=== PATIENT | female | born 1965 | race Caucasian/White ===

== ENCOUNTER 2022-05-23 09:34 | Outpatient (CLI) | payer BC ==
[2022-05-23 14:10] LABS: BASOPHILS # (AUTO) 0.1 10^3/uL (0.0-0.1); BASOPHILS % (AUTO) 0.8 %; EOSINOPHILS # (AUTO) 0.2 10^3/uL (0.0-0.7); EOSINOPHILS % (AUTO) 2.4 %; HCT - HEMATOCRIT 42.1 % (37.0-47.0); HGB - HEMOGLOBIN 13.7 g/dL (12.0-16.0); LYMPHOCYTES # (AUTO) 2.2 10^3/uL (1.5-3.5); LYMPHOCYTES % (AUTO) 29.7 %; MEAN CORPUSCULAR HEMOGLOBIN 30.6 pg (27.0-31.0); MEAN CORPUSCULAR HGB CONC 32.5 g/dL (32.0-36.0); MEAN CORPUSCULAR VOLUME 94.2 fL (81.0-99.0); MEAN PLATELET VOLUME 9.7 fL (7.9-10.8); MONOCYTES # (AUTO) 0.7 10^3/uL (0.0-1.0); MONOCYTES % (AUTO) 9.7 %; NEUTROPHILS # (AUTO) 4.3 10^3/uL (1.5-6.6); NEUTROPHILS % (AUTO) 57.1 %; PLT - PLATELET COUNT 408 10^3/uL (130-450); RED BLOOD COUNT 4.47 10^6/uL (4.20-5.40); RED CELL DISTRIBUTION WIDTH 13.1 % (12.0-15.0); WHITE BLOOD COUNT 7.5 x10^3/uL (4.8-10.8)
[2022-05-23 14:30] LABS: ALBUMIN/GLOBULIN RATIO 1.1 (1.0-2.2); BILIRUBIN,TOTAL 0.4 mg/dL (0.2-1.0); CALCIUM 9.7 mg/dL (8.5-10.3); CREATININE 0.6 mg/dL (0.4-1.0); POTASSIUM 3.9 mmol/L (3.5-5.0); TOTAL PROTEIN 7.7 g/dL (6.7-8.2)
[2022-05-23 14:41] LABS: THYROID STIMULATING HORMONE 1.38 uIU/mL (0.34-5.60)
== END 2022-05-23 09:35 | disposition home or self-care (01) ==
LOC: LAB.S 09:34
PROVIDERS: ATTEND Registered Nurse
DX: R59.0 Localized enlarged lymph nodes (principal); R05.1 Acute cough; R06.09 Other forms of dyspnea; R53.83 Other fatigue; R53.81 Other malaise
CPT/HCPCS: 36415; 80053; 82306; 82607; 84443; 85025

== ENCOUNTER 2022-05-23 12:29 | Outpatient (CLI) | payer BC ==
--- NOTE | 2022-05-23 10:19 | XRAY Report ---
PROCEDURE: Chest 2 View X-Ray INDICATIONS: COUGH TECHNIQUE: 2 views of the chest were acquired. COMPARISON: None. FINDINGS: Surgical changes and devices: None. Lungs and pleura: No pleural effusions or pneumothorax. Lungs are clear. Mediastinum: Mediastinal contours are normal. Heart size is normal. Bones and chest wall: No suspicious bony abnormalities. Mild S-shaped thoracolumbar scoliotic curvat ure. Soft tissues appear unremarkable. IMPRESSION: No evidence acute pulmonary process. Reviewed by: Danilo Graham MD on 05/23/2022 10:18 AM [facility] Approved by: Danilo Graham MD on 05/23/2022 10:18 AM [facility] Station ID: [id number]
== END 2022-05-23 12:30 | disposition home or self-care (01) ==
LOC: DI.S 12:29
PROVIDERS: ATTEND Registered Nurse
DX: R59.0 Localized enlarged lymph nodes (principal); R05.1 Acute cough; R06.09 Other forms of dyspnea; R53.83 Other fatigue; R53.81 Other malaise
CPT/HCPCS: 36415; 80053; 82306; 82607; 84443; 85025

== ENCOUNTER 2022-09-28 10:59 | Emergency (ER) | payer BC ==
[2022-09-28] MEDS ORDERED: SODIUM CHLORIDE 0.9% 1,000 ML IV STA (11:50)
--- NOTE | 2022-09-28 11:53 | ED Physician Documentation ---
History of Present Illness - Stated complaint Stated Complaint: LOSS OF BALANCE/SPEECH - Chief complaint Chief Complaint: Neuro - Additonal information Additional information: 56-year-old female presents to the emergency department for evaluation of feeling generally off and fuzzy. This has been present since this morning. She went to bed last night feeling well. Patient and her partner at the bedside report that she had similar episode 2 weeks ago after some dental work. She did have dental work 2 days ago but is not currently taking any narcotics. Patient and her partner feel that her speech is "off" though in conversation with her it sounds very fluid Currently on amlodipine and to losartan as well as hydrochlorothiazide. Patient does take estrogen, progesterone as well as testosterone for hormonal deficiencies. Non-smoker. Rare alcohol and cannabis use. Patient presents outside the window for consideration of tenecteplase. However her NIHSS on presentation is 0. Meds: Telmisartan/amlodipine, hydrochlorothiazide, progesterone, testosterone, estrogen, Qvar, albuterol Review of Systems Constitutional: denies: Fever Eyes: reports: Reviewed and negative Ears: reports: Reviewed and negative Nose: reports: Reviewed and negative Throat: reports: Reviewed and negative Cardiac: reports: Reviewed and negative Respiratory: reports: Reviewed and negative GI: reports: Reviewed and negative : reports: Reviewed and negative Skin: reports: Reviewed and negative Musculoskeletal: reports: Reviewed and negative Neurologic: reports: Difficulty speaking. denies: Generalized weakness, Focal weakness, Numbness, Near syncope, Syncope, Confused, Altered mental status, Headache, Head injury PD PAST MEDICAL HISTORY - Allergies Allergies/Adverse Reactions: Allergies Allergy/AdvReac Type Severity Reaction Status Date / Time erythromycin base Allergy Cramps Verified 09/28/22 11:15 PD ED PE NORMAL - General General: Alert and oriented X 3, No acute distress, Well developed/nourished - HEENT HEENT: Atraumatic - Neck Neck: Supple, no meningeal sign, No adenopathy - Cardiac Cardiac: RRR, No murmur - Respiratory Respiratory: No respiratory distress, Clear bilaterally - Abdomen Abdomen: Normal bowel sounds, Soft, Non tender - Derm Derm: Normal color, Warm and dry, No rash - Extremities Extremities: No deformity - Neuro Neuro: Alert and oriented X 3, outdoor adventure leader 2-12 intact, No motor deficit, No sensory deficit, Normal speech Eye Opening: Spontaneous Motor: Obeys Commands Verbal: Oriented GCS Score: 15 Results - Vitals Vitals: Vital Signs - 24 hr 09/28/22 09/28/22 11:16 12:15 Temperature 36 C L Heart Rate 72 61 Respiratory 18 16 Rate Blood Pressure 126/67 130/81 H O2 Saturation 98 99 Oxygen O2 Source Room air - EKG (time done) 1155 EKG releavant findings:: EKG personally interpreted by author of this note. Relevant findings are: Rate: Rate (enter#) (61) Rhythm: NSR [place]: LAD Intervals: Normal SD QRS: Normal Ischemia: Non specific changes Compare to prior EKG: Old EKG unavailable Computer interpretation: Agree with computer - Labs Labs: Laboratory Tests 09/28/22 09/28/22 09/28/22 12:11 12:11 12:11 WBC 12.0 H RBC 4.15 L Hgb 12.9 Hct 37.7 MCV 90.8 MCH 31.1 H MCHC 34.2 RDW 12.5 Plt Count 370 MPV 9.2 Neut # (Auto) 9.0 H Lymph # (Auto) 1.9 [place] # (Auto) 0.8 Eos # (Auto) 0.2 Baso # (Auto) 0.0 Absolute Nucleated RBC 0.00 Nucleated RBC % 0.0 PT INR Sodium 140 Potassium 3.2 L Chloride 110 Carbon Dioxide 24 Anion Gap 6.0 BUN 16 Creatinine 0.8 Estimated GFR (MDRD) 74 L Glucose 90 Calcium 8.6 Total Bilirubin 0.5 AST 16 ALT 22 Alkaline Phosphatase 40 L Troponin I High Sens 14.4 Total Protein 6.6 L Albumin 3.6 Globulin 3.0 Albumin/Globulin Ratio 1.2 Lipase 35 09/28/22 12:23 WBC RBC Hgb Hct MCV MCH MCHC RDW Plt Count MPV Neut # (Auto) Lymph # (Auto) [place] # (Auto) Eos # (Auto) Baso # (Auto) Absolute Nucleated RBC Nucleated RBC % PT 11.7 INR 1.1 Sodium Potassium Chloride Carbon Dioxide Anion Gap BUN Creatinine Estimated GFR (MDRD) Glucose Calcium Total Bilirubin AST ALT Alkaline Phosphatase Troponin I High Sens Total Protein Albumin Globulin Albumin/Globulin Ratio Lipase - Rads (name of study) cxr Relevant Findings:: Final report received (No acute cardiopulmonary process) angio neck Relevant Findings:: Final report received (Negative CT angiogram of the neck and arterial vasculature. No evidence for dissection occlusion or hemodynamically significant stenosis) angio head Relevant Findings:: Final report received (Negative CT angiogram of the intracranial arterial vasculature without evidence for occlusion, dissection aneurysm or high-grade stenosis. CT head without acute intracranial ab normalities.) PD Medical Decision Making - ED course Complexity details: reviewed results, d/w patient, d/w family ED course: 56-year-old female presents emergency department for the evaluation of feeling foggy, dizzy and off balance. States that 2 weeks ago she had very similar symptoms after she had a dental procedure on a tooth in her upper mouth. 2 days ago she had a repeat dental procedure and the symptoms began this morning. On presentation to the emergency department however she had an NIHSS of 0. There was no slurred speech, facial droop arm or leg weakness. She had a normal cerebellar exam. I did obtain CBC, electrolytes which showed no acute worrisome findings. Subsequently CT angiograms of the head neck were completed which were also negative. Though the patient reported some minor strokelike symptoms she presented with an NIHSS of 0 and while here in the emergency department has remained without any focal findings. Her EKG showed sinus rhythm. I did offer the patient and her partner an MRI of the head today though they declined it. They would like to do this as an outpatient. Subsequently she is discharged to follow closely with her PCP where she would benefit from an outpatient echocardiogram and MRI. Otherwise usual emergent return precautions worsening symptoms were discussed. Departure - Departure Disposition: 01 Home, Self Care Clinical Impression: Stroke-like symptoms Condition: Stable Record reviewed to determine appropriate education?: Yes Comments: Raissa you are seen today in the emergency department because this morning you were reporting difficulty with your balance, feeling fuzzy and lightheaded. You did have a Dental procedure 2 days ago on your mouth And 2 weeks ago when you had a dental procedure you also had a similar reaction. The time you arrived to the emergency department your neurological and cerebellar exam were entirely normal. We did obtain an EKG that showed sinus rhythm. Your labs showed no worrisome findings. Subsequently CT angiograms of the head and neck were also normal without any findings of stenosis, occlusion or aneurysm. Is important you discuss this ED visit with your primary care doctor. You may benefit from an outpatient MRI of the brain or echocardiogram of the heart. Return immediately to the ER if you develop any sudden slurred speech, facial droop or have focal weakness in the arms or legs NIHSS - Time Time: 11:45 - Level of Consciousness Level of consciousness: (0) Alert, Keenly responsive LOC Questions: (0) Answers both Q's correct LOC Commands: (0) Performs both correctly - Gaze Best Gaze: (0) Normal - Visual Visual: (0) No loss - Facial Palsy Facial Palsy: (0) Normal, symmetrical movement - Motor Arms (both separate) Motor Arm (right): (0) No drift Motor Arm (left): (0) No drift - Motor Legs (both separate) Motor Leg (right): (0) No drift Motor Leg (left): (0) No drift - Limb Ataxia Limb Ataxia: (0) Absent - Sensory Sensory: (0) Normal - Best Language Best Language: (3) Mute, global aphasia - Dysarthria Dysarthria: (0) Normal - Extinction and Inattention (formally neg Extinction and inattention: (0) No abnormality - Total Score/Results Total Score/Result: 3
[2022-09-28 12:17] LABS: BASOPHILS % (AUTO) 0.3 %; EOSINOPHILS # (AUTO) 0.2 10^3/uL (0.0-0.7); EOSINOPHILS % (AUTO) 1.3 %; HCT - HEMATOCRIT 37.7 % (37.0-47.0); HGB - HEMOGLOBIN 12.9 g/dL (12.0-16.0); LYMPHOCYTES # (AUTO) 1.9 10^3/uL (1.5-3.5); LYMPHOCYTES % (AUTO) 15.9 %; MEAN CORPUSCULAR HEMOGLOBIN 31.1 pg (27.0-31.0); MEAN CORPUSCULAR HGB CONC 34.2 g/dL (32.0-36.0); MEAN CORPUSCULAR VOLUME 90.8 fL (81.0-99.0); MEAN PLATELET VOLUME 9.2 fL (7.9-10.8); MONOCYTES # (AUTO) 0.8 10^3/uL (0.0-1.0); NEUTROPHILS % (AUTO) 75.2 %; PLT - PLATELET COUNT 370 10^3/uL (130-450); RED BLOOD COUNT 4.15 10^6/uL (4.20-5.40); RED CELL DISTRIBUTION WIDTH 12.5 % (12.0-15.0)
--- NOTE | 2022-09-28 12:19 | XRAY Report ---
PROCEDURE: Chest 1 View X-Ray INDICATIONS: Chest Pain TECHNIQUE: One view of the chest was acquired. COMPARISON: None. FINDINGS: Surgical changes and devices: None. Lungs and pleura: No pleural effusions or pneumothorax. Lungs are clear. Mediastinum: Mediastinal contours appear normal. Heart size is normal. Bones and chest wall: No suspicious bony lesions. Overlying soft tissues appear unremarkable. IMPRESSION: No acute cardiopulmonary process. Reviewed by: Clement Lopez MD on 09/28/2022 11:18 AM [facility] Approved by: Clement Lopez MD on 09/28/2022 11:18 AM [facility] Station ID: [id number]
[2022-09-28 12:32] LABS: ALBUMIN 3.6 g/dL (3.2-5.5); ALBUMIN/GLOBULIN RATIO 1.2 (1.0-2.2); BILIRUBIN,TOTAL 0.5 mg/dL (0.2-1.0); CALCIUM 8.6 mg/dL (8.5-10.3); CREATININE 0.8 mg/dL (0.4-1.0); POTASSIUM 3.2 mmol/L (3.5-5.0); TOTAL PROTEIN 6.6 g/dL (6.7-8.2)
[2022-09-28 12:33] LABS: INR 1.1 (0.8-1.2); PT - PROTHROMBIN TIME 11.7 secs (9.9-12.6)
[2022-09-28] MEDS ORDERED: iohexoL-300 100 ML VIAL ONE (13:14)
[2022-09-28] MEDS ORDERED: iohexoL-300 100 ML VIAL IVP ONE (13:33)
--- NOTE | 2022-09-28 14:00 | CT Report ---
PROCEDURE: ANGIO HEAD W/WO INDICATIONS: off balance CONTRAST: 80ml omni 300 TECHNIQUE: Precontrast 4.5 mm thick angled axial sections acquired from the foramen magnum to the vertex. Afte r the administration of intravenous contrast, 1 mm thick sections acquired through the [place] is. Postcontrast 4.5 mm thick sections then re-acquired from the foramen magnum to the vertex. 3-di mensional fhsdonj-lpoodgdco-dzlythdert (MIP) and/or volume rendering reformats were acquired of the c entral intracranial vasculature. For radiation dose reduction, the following was used: automated ex posure control, adjustment of mA and/or kV according to patient size. COMPARISON: None FINDINGS: Image quality: Excellent. Anterior circulation: Intracranial internal carotid arteries are normal in size and flow. The flow within the paired anterior cerebral arteries is normal and symmetric. The flow within the middle cer ebral arteries is normal and symmetric. The anterior communicating artery is seen. No aneurysms are seen. Posterior circulation: Visualized portions of the vertebral arteries demonstrate normal caliber, and join to form a normal appearing basilar artery. Flow within the posterior cerebral arteries is norm al and symmetric. No aneurysms are seen. CSF spaces: Ventricles are normal in size and shape. Basal cisterns are patent. No extra-axial flu id collections. Brain: No midline shift. No intracranial bleeds or masses. [place]-white matter interface appears int act. Skull and face: Calvarium and facial bones appear intact, without suspicious lesions. Sinuses: Visualized sinuses and mastoids are clear. IMPRESSION: CT head without acute intracranial abnormalities. Negative CT angiogram of the intracranial arterial vasculature without evidence for occlusion, dissec tion, aneurysm, or high-grade stenosis. Reviewed by: Clement Lopez MD on 09/28/2022 12:58 PM [facility] Approved by: Clement Lopez MD on 09/28/2022 12:58 PM [facility] Station ID: [id number]
--- NOTE | 2022-09-28 14:03 | CT Report ---
PROCEDURE: ANGIO NECK W INDICATIONS: off balance CONTRAST: 80ml omni 300 TECHNIQUE: After the administration of intravenous contrast, 1.5 mm axial sections acquired from the aortic arch to the [place]. Coronal 3-D maximum intensity projection (MIP) and/or volume rendering ref ormats were then performed. For radiation dose reduction, the following was used: automated exposur e control, adjustment of mA and/or kV according to patient size. COMPARISON: None. FINDINGS: Image quality: Excellent. Carotid system: The great vessels demonstrate a conventional anatomy as they arise from the aortic a rch. The origins of the common carotid arteries appear patent. The common carotid arteries demonstr ate normal calibers and courses. The bifurcation regions appear normal bilaterally. The internal ca rotid arteries demonstrate normal caliber and course. Posterior circulation: The origins of the vertebral arteries appear patent. The more superior porti ons of the vertebral arteries demonstrate normal course and caliber. They join to form a normal appe aring basilar artery. Soft tissues: Visualized neck soft tissues demonstrate no suspicious abnormalities. The thyroid is normal in size and there are no incidental findings. Bones: No suspicious bony lesions. There is straightening of normal cervical lordosis with gentle re versal centered at L4-5. Moderate multilevel cervical spondylosis most pronounced at C5-6. IMPRESSION: Negative CT angiogram of the neck arterial vasculature. No evidence for dissection, occlusion, or hem odynamically significant stenosis. Multilevel cervical spondylosis most severe at C5-6. Associated straightening of cervical lordosis wi th gentle reversal likely related to positioning and/or concurrent muscle spasms. The estimate of stenosis included in the report of the imaging study was calculated using the NASCET method CLINICAL RECOMMENDATION STATEMENTS: In patients <35 years with an ITN detected on CT, MRI, or extrathyroidal ultrasound, the Committee re commends further evaluation with dedicated thyroid ultrasound if the nodule is "e1 cm and has no susp icious imaging features, and if the patient has normal life expectancy. In patients "e35 years with an ITN detected on CT, MRI, or extrathyroidal ultrasound, the Committee r ecommends further evaluation with dedicated thyroid ultrasound if the nodule is "e1.5 cm and has no s uspicious imaging features, and if the patient has normal life expectancy. (ACR, 2014) Reviewed by: Clement Lopez MD on 09/28/2022 1:01 PM [facility] Approved by: Clement Lopez MD on 09/28/2022 1:01 PM [facility] Station ID: [id number]
[2022-09-28 14:57] VITALS: BP 128/80
== END 2022-09-28 14:55 | disposition home or self-care (01) ==
LOC: ED 10:59
DX: R47.9 Unspecified speech disturbances (principal); R42 Dizziness and giddiness
CPT/HCPCS: 36415; 70496; 70498; 71045; 80053; 83690; 84484; 85025; 85610; 93005; 99283; 99284; Q9967

== ENCOUNTER 2023-11-30 09:16 | Emergency (ER) | payer BC ==
--- NOTE | 2023-11-30 09:52 | ED Physician Documentation ---
PD HPI FEMALE - Stated complaint Stated Complaint: SWELLING - Chief complaint Chief Complaint: Wound - History obtained from History obtained from: Patient - History of Present Illness Timing - onset: How many days ago (3-4) Timing - duration: Days (3-4) Timing - details: Gradual onset, Still present Associated symptoms: Other (has a small pimple like bump right inguinal/outer labial area that is tender and increasing for few days. No drainage. No fevers. No symptoms aside from local tenderness.). No: Fever, Abdominal pain, Vaginal discharge Recently seen: Other (she called her oncologist who directed her to come for eval for concern of infection and her having recent chemo and due for another course tomorrow.) PD PAST MEDICAL HISTORY - Past Medical History Past Medical History: Yes Cardiovascular: Hypertension Other Past Medical History: breast cancer - Past Surgical History Past Surgical History: Yes General: Appendectomy - Present Medications Home Medications: Ambulatory Orders Medication Instructions Recorded Confirmed Doxycycline Hyclate 100 mg PO BID 7 Days #14 cap 11/30/23 Mupirocin 2% Oint [Bactroban 2% 1 applic TOP TID #15 gm 11/30/23 Oint] - Allergies Allergies/Adverse Reactions: Allergies Allergy/AdvReac Type Severity Reaction Status Date / Time erythromycin base Allergy Cramps Verified 11/30/23 09:22 amoxicillin AdvReac Nausea Verified 11/30/23 09:24 azithromycin AdvReac Nausea Verified 11/30/23 09:24 cephalexin AdvReac Nausea Verified 11/30/23 09:24 lidocaine AdvReac Unknown Verified 11/30/23 09:24 lisinopril AdvReac Unknown Verified 11/30/23 09:24 - Social History Does the pt smoke?: No Smoking Status: Never smoker - Immunizations Immunizations are current?: Yes PD ED PE NORMAL - Vitals Vital signs reviewed: Yes - General General: Alert and oriented X 3, No acute distress, Well developed/nourished - Derm Derm: Normal color, Warm and dry, Other (right inguinal area with pimple like lesion outer labia with local tenderness and minimal redness. No fluctuance, but bedside US by me showed just few mm area of fluid just under skin.) Results - Vitals Vitals: Oxygen O2 Source Room air - Labs Labs: Microbiology 11/30/23 10:37 Wound Culture - Preliminary Skin - Abscess PD Medical Decision Making - ED course Complexity details: reviewed results (will treat for presumed staph pending culture results. She appears well otherwise. Local skin infection without systmepic symptoms. ), considered differential (small abscess outer labia right side, nicked with scalpel tip and got 3 drops of purulent material for culture. Bedside US did not show any further fluid after that. Inflammation of tissue just locally about 2-3 cm. Local infection and no systemic symptoms. I did not feel needed workup/labs/etc. ), d/w patient, other (sees oncoligst in clinic tomorrow for chemo dosing. ) Departure - Departure Disposition: Home, Self Care Clinical Impression: Cutaneous abscess of groin Condition: Stable Record reviewed to determine appropriate education?: Yes Instructions: ED Staph Infec Abx Tx Only Follow-Up: Beth Lance ND [Primary Care Provider] - DEEPALI DIXON MD [Physician No Access] - Prescriptions: Mupirocin 2% Oint [Bactroban 2% Oint] 1 applic TOP TID #15 gm Doxycycline Hyclate 100 mg PO BID 7 Days #14 cap Comments: We were able to obtain 3 good drops of pus from the wound. Bedside ultrasound did not show any further fluid collection/abscess. Obviously there is redness and swelling and tenderness correlating with the soft tissue infection locally in the area. The culture should result in a couple of days. We typically call if we need to change the antibiotic choice based on the culture. Otherwise follow-up with your oncologist tomorrow as planned and I am sure they will be keeping the look out for the culture results as well. Right now the most common germs for this would be Staph aureus would target antibiotics towards that with doxycycline orally and topical mupirocin. Warm compresses and moisture to the area and gentle massage to see if any more fluid can come out. Tylenol as needed for pains. I sent new prescription to [facility] in [place]. Forms: PCP List Discharge Date/Time: 11/30/23 11:01
[2023-11-30] MEDS: DOXYCYCLINE 100 MG TABLET PO STA (10:53)
[2023-11-30] MEDS: MUPIROCIN 2% OINT 1 GM TOP STA (10:54)
[2023-11-30 11:00] VITALS: BP 128/77; O2SAT 98
== END 2023-11-30 11:01 | disposition home or self-care (01) ==
LOC: ED 09:16
DX: L02.214 Cutaneous abscess of groin (principal); I10 Essential (primary) hypertension; Z85.3 Personal history of malignant neoplasm of breast
CPT/HCPCS: 56405; 87070; 87077; 87181; 87205; 99283; A9270